=== PATIENT | female | born 1935 | race Caucasian/White ===

== ENCOUNTER 2017-03-26 02:27 | Emergency (ER) | payer OTHER ==
[2017-03-26] MEDS ORDERED: ONDANSETRON 4 MG/2 ML VIAL IVPB ONE (02:30)
[2017-03-26] MEDS ORDERED: SODIUM CHLORIDE 1,000 ML IV ONE (02:31)
[2017-03-26] MEDS ORDERED: morphine CARPU-JECT 4 MG/1 ML DISP.SYRIN IVPUSH ONE (02:31)
--- NOTE | 2017-03-26 02:31 | PDOC ---
History of Present Illness - General Chief Complaint: Pain, Acute Stated Complaint: FLANK PAIN History Source: Patient Exam Limitations: No Limitations - History of Present Illness Initial Comments: 03/26/17 02:36 This is an obese 81-year-old female who comes in complaining of acute onset of left flank pain radiating to her left lower quadrant. Patient says it is associated with some mild nausea but denies any frequency, dysuria, hematuria, vomiting or diarrhea. Patient denies any fevers or chills. Patient denies history of similar pain in the past. Patient denies history of renal colic or family history of kidney stones. Patient has multiple medical problems including diabetes, hypertension, high cholesterol, pacemaker, coronary artery disease. PAST MEDICAL HISTORY: no significant history PAST SURGICAL HISTORY: no significant history FAMILY HISTORY: no pertinant history SOCIAL HISTORY: Pt lives with family and is employed. MEDICATIONS: reviewed ALLERGIES: As per nursing notes Review of Systems General: No fevers or chills, no weakness, no weight loss HEENT: No change in vision. No sore throat,. No ear pain CardioVascular: No chest pain or shortness of breath Respiratory:No cough, or wheezing. Gastrointestinal: no nausea, vomitting, diarrhea or constipation, No rectal bleeding, left flank/abdominal pain Genitourinary: No dysuria, hematuria, or frequency Musculoskeletal: No joint or muscle pain or swelling Neurologic: No headache, vertigo, dizziness or loss of consciousness Psychiatric: nor depression Skin: No rashes or easy bruising Endocrine: no increased thirst or abnormal weight change Allergic: no skin or latex allergy All other systems reviewed and normal Exam: General: Well-nourished well-developed individual, no acute distress HEENT: Throat: Normal, tonsils normal, no erythema or exudate Neck: Supple, no meningeal signs, no lymphadenopathy Eyes::Pupils equal reactive and round, extraocular motion intact Chest: Nontender to palpation Cardiac: S1-S2 normal, regular rate and rhythm, no murmurs rubs or gallops Respiratory: Lungs clear to auscultation bilateral Abdomen: Soft, nondistended, normal bowel sounds, nontender to palpation diffusely BACK/FLANK: There is pain on palpation left lower flank area Extremities: Warm, dry, no cyanosis, clubbing, or edema Skin: No rashes Neuro: Alert and oriented x3, nonfocal exam, grossly intact, normal gait Psych: Normal mood and affect 03/26/17 03:38 CT scan showed no acute intra-abdominal pathology Patient feels much better post fluids and morphine. Assessment and plan: This is a 81-year-old female who came in with left sided back flank pain radiating towards her abdomen. Patient had a workup including CBC with a slightly elevated white count but no left shift. Patient's chemistries were otherwise unremarkable. Patient had a CAT scan with no acute intra-abdominal pathology. Patient's urine was negative for any infection or blood. Patient discharged home will follow-up with her primary care next week if symptoms return. Past History - Past Medical History Allergies/Adverse Reactions: Allergies Allergy/AdvReac Type Severity Reaction Status Date / Time shrimp Allergy Severe Difficulty Verified 05/19/15 15:09 Breathing Penicillins Allergy Intermediate Rash Verified 05/19/15 15:09 Home Medications: Ambulatory Orders Cholecalciferol (Vitamin D3) [Vitamin D3] 1,000 unit PO DAILY 05/19/15 Furosemide [Lasix -] 40 mg PO DAILY 05/19/15 Lutein 6 mg PO DAILY 05/19/15 Metformin HCl 500 mg PO BID 05/19/15 Nebivolol HCl [Bystolic] 10 mg PO DAILY 05/19/15 Potassium Chloride [Klor-Con M15] 15 meq PO DAILY 05/19/15 Apixaban [Eliquis] 5 mg PO BID 08/20/15 Glipizide [Glipizide ER] 2.5 mg PO BID 08/20/15 Rosuvastatin Calcium [Crestor] 10 mg PO DAILY 08/20/15 Oxycodone HCl/Acetaminophen [Percocet 5/325 -] 1 tab PO Q6H #10 tablet 08/21/15 Cardiac Disorders: Yes (PACEMAKER) Diabetes: Yes GI Disorders: Yes (HIATAL HERNIA) HTN: Yes - Psycho/Social/Smoking Cessation Hx Anxiety: No Suicidal Ideation: No Smoking History: Former smoker Have you smoked in the past 12 months: No If you are a former smoker, when did you quit?: 1969 Hx Alcohol Use: Yes (RARE) Drug/Substance Use Hx: No Substance Use Type: Alcohol ED Treatment Course - LABORATORY CBC & Chemistry Diagram: 03/26/17 02:50 03/26/17 02:50 *DC/Admit/Observation/Transfer Diagnosis at time of Disposition: Acute flank pain - Discharge Dispostion Disposition: HOME Condition at time of disposition: Stable Admit: No - Patient Instructions Additional Instructions: Tylenol as needed for the pain. Return to the emergency department immediately with ANY new, persistent or worsening symptoms. Continue any medications as previously prescribed by your physician. You should follow up with your primary doctor as soon as possible regarding today's emergency department visit. . Please make sure your doctor reviews the results of your emergency evaluation. Thank you for coming to the Emergency Department today for your care. It was a pleasure to see you today. Please note that your evaluation is INCOMPLETE until you follow-up with your doctor.
[2017-03-26] MEDS ORDERED: ONDANSETRON 4 MG/2 ML VIAL ONE (02:38)
[2017-03-26] MEDS ORDERED: morphine CARPU-JECT 4 MG/1 ML DISP.SYRIN ONE (02:38)
[2017-03-26 03:16] LABS: BASOPHIL 0.6 % (0-2.0); EOSINOPHIL 1.5 % (0-4.5); MCH 30.1 pg (25.7-33.7); MCHC 32.6 g/dl (32.0-36.0); MEAN CELL VOLUME 92.2 fl (80-96); MEAN PLT VOLUME 8.6 fl (7.5-11.1); PLATELET COUNT 170 K/MM3 (134-434); RDW 14.7 % (11.6-15.6); WHITE BLOOD COUNT 12.3 K/mm3 (4.0-10.0)
[2017-03-26 03:18] LABS: URINE APPEARANCE CLEAR; URINE BILIRUBIN NEGATIVE (NEGATIVE); URINE BLOOD NEGATIVE (NEGATIVE); URINE COLOR LTYELLOW; URINE GLUCOSE (UA) NEGATIVE (NEGATIVE); URINE KETONE NEGATIVE (NEGATIVE); URINE LEUK ESTERASE TRACE (NEGATIVE); URINE NITRITE NEGATIVE (NEGATIVE); URINE UROBILINOGEN NEGATIVE mg/dL (0.2-1.0)
[2017-03-26 03:23] LABS: URINE PROTEIN 1+ (NEGATIVE)
[2017-03-26 03:30] VITALS: BP 172/77; PULSE 68; TEMP 97.4; BMI 32.2
[2017-03-26 04:12] LABS: ALBUMIN 3.4 g/dl (3.4-5.0); ANION GAP 7 (8-16); BILIRUBIN,TOTAL 0.5 mg/dL (0.2-1.0); CALCIUM 8.9 mg/dL (8.5-10.1); CO2 32 mmol/L (21-32); CREATININE 0.8 mg/dL (0.55-1.02); GLUCOSE,RANDOM 154 mg/dL (74-106); SGOT/AST 17 U/L (15-37); SGPT/ALT 23 U/L (12-78); TOT PROT 6.9 g/dl (6.4-8.2)
[2017-03-26 04:13] LABS: ALK PHOS 64 U/L (45-117)
[2017-03-26 04:17] LABS: URINE HYALINE CAST 1 /lpf; URINE MUCUS RARE; URINE RBC 1 /hpf (0-3); URINE WBC 1 /hpf (3-5)
== END 2017-03-26 04:25 | disposition home or self-care (01) ==
LOC: FER 02:27
PROC: 3E033NZ Introduction of Analgesics, Hypnotics, Sedatives into Peripheral Vein, Percutaneous Approach (ICD-10-PCS; principal; 2017-03-26)
PROC: 3E033GC Introduction of Other Therapeutic Substance into Peripheral Vein, Percutaneous Approach (ICD-10-PCS; 2017-03-26)
PROC: 3E0337Z Introduction of Electrolytic and Water Balance Substance into Peripheral Vein, Percutaneous Approach (ICD-10-PCS; 2017-03-26)
DX: R10.32 Left lower quadrant pain (principal); I10 Essential (primary) hypertension; Z95.0 Presence of cardiac pacemaker; E11.9 Type 2 diabetes mellitus without complications; Z87.891 Personal history of nicotine dependence
CPT/HCPCS: 36415; 74176-TC; 80053; 81003; 81015; 85025; 99283-25

== ENCOUNTER 2017-10-28 09:09 | Emergency (ER) | payer OTHER ==
--- NOTE | 2017-10-28 09:15 | PDOC ---
History of Present Illness - General Chief Complaint: Pain Stated Complaint: PAIN TO LEFT SHOULDER AND BACK Time Seen by Provider: 10/28/17 09:15 - History of Present Illness Initial Comments: 10/28/17 09:38 MS Hudson is a [place] 81 yo F who presents to the ER with her due to left upper back and elbow pain Pt states she is 8 weeks s/p left knee replacement. She is currently doing physical therapy s/p her surgery On Monday, she was in therapy, pulled on a resistance band and noted left upper back pain No direct trauma No cough, no shortness of breath, no fevers Pt states that pain is at its worse at night (for example, last night she could only sleep for 3 hours due to upper back pain) No rash No limitations in range of motion, no arm weakness or numbness PMH: HTN, DM, Afib, TIA PSH: left knee replacement, cataract surgery, PPM placement Meds: please see MAR ALL: Shrimp, PCN --> urticaria Social: , lives at home with , independent ADLs, Denies alcohol, drugs, tobacco use PMD: Dr Magana Cards: outside physician GENERAL/CONSTITUTIONAL: No: fever, chills HEAD, EYES, EARS, NOSE AND THROAT: No: change in vision, ear pain, discharge, sore throat, throat swelling. CARDIOVASCULAR: No: chest pain, lightheadedness, palpitations, syncope RESPIRATORY: No: cough, shortness of breath GASTROINTESTINAL: No: nausea, vomiting, diarrhea, abdominal pain GENITOURINARY: No: dysuria, hematuria MUSCULOSKELETAL: Yes: upper back pain No: neck pain, joint pain SKIN: No: lesions, rash NEUROLOGIC: No: headache ENDOCRINE: No: unexplained weight gain or loss HEMATOLOGIC/LYMPHATIC: Yes: anticoagulant No: anemia, easy bleeding, swelling nodes. GENERAL: The patient is in no acute distress. HEAD: Normal with no signs of trauma. EYES: PERRLA, EOMI, sclera anicteric, conjunctiva clear. ENT: Ears normal, nares patent, oropharynx clear without exudates. Moist mucous membranes. NECK: Normal range of motion, supple LUNGS: Breath sounds equal, clear to auscultation bilaterally. No wheezes, and no crackles. HEART:Regular rate and rhythm, normal S1 and S2 without murmur, rub or gallop. ABDOMEN: Soft, nontender, normoactive bowel sounds. No guarding, no rebound. No masses palpable. EXTREMITIES: Normal range of motion, no edema. No clubbing or cyanosis. No erythema, or tenderness. 2+ RP 2+ UP Sensation in tact Brisk cap refill NEUROLOGICAL: Cranial nerves II through XII grossly intact. Normal speech. No focal neurological deficits. MUSCULOSKELETAL: I was able to find an area of tenderness in the left upper back, I palpated once and it was painful, the 2nd time it was not Pt is able to Flex and extend at the left shoulder Pt is able to Abduct and Adduct at the left shoulder Negative Empty can test SKIN: Warm, Dry, normal turgor, no rashes or lesions noted. 10/28/17 09:42 10/28/17 09:47 10/28/17 09:59 Past History - Past Medical History Allergies/Adverse Reactions: Allergies Allergy/AdvReac Type Severity Reaction Status Date / Time shrimp Allergy Severe Difficulty Verified 10/30/17 09:21 Breathing Penicillins Allergy Intermediate Rash Verified 10/30/17 09:21 Home Medications: Ambulatory Orders Cholecalciferol (Vitamin D3) [Vitamin D3] 1,000 unit PO DAILY 05/19/15 Furosemide [Lasix -] 40 mg PO DAILY 05/19/15 Lutein 6 mg PO DAILY 05/19/15 Metformin HCl 500 mg PO BID 05/19/15 Nebivolol HCl [Bystolic] 10 mg PO DAILY 05/19/15 Potassium Chloride [Klor-Con M15] 15 meq PO DAILY 05/19/15 Apixaban [Eliquis] 5 mg PO BID 08/20/15 Glipizide [Glipizide ER] 2.5 mg PO BID 08/20/15 Rosuvastatin Calcium [Crestor] 10 mg PO DAILY 08/20/15 Oxycodone HCl/Acetaminophen [Percocet 5/325 -] 1 tab PO Q6H #10 tablet 08/21/15 Lidocaine 5% Patch [Lidoderm Patch -] 1 patch TP DAILY PRN #30 patch 10/28/17 Oxycodone HCl 5 mg PO Q8H PRN #12 tablet MDD 3 10/30/17 Cardiac Disorders: Yes (PACEMAKER) CVA: Yes (TIA) Diabetes: Yes GI Disorders: Yes (HIATAL HERNIA) HTN: Yes - Surgical History Cardiac Surgery: Yes (PPM) - Suicide/Smoking/Psychosocial Hx Smoking History: Former smoker Have you smoked in the past 12 months: No If you are a former smoker, when did you quit?: 1969 Hx Alcohol Use: Yes (RARE) Drug/Substance Use Hx: No Substance Use Type: Alcohol ED Treatment Course - LABORATORY CBC & Chemistry Diagram: 10/28/17 09:45 10/28/17 10:15 Medical Decision Making - Medical Decision Making 10/28/17 09:56 81 yo F presenting to the ER with a complaint of left upper back and left arm pain Pt s/p work out at PT that may have been too aggressive DD includes Musculoskeletal pain, Atypical angina, PE (Given recent surgery), pneumonia Will do: Labs Will include age adjusted D dimer (this patient is recently post op and has left upper back pain with I can not elicit with palpation of the area or laying patient down on her back, or ranging her shoulder) CXR EKG Will re assess 10/28/17 09:59 EKG: paced at 70 bpm 10/28/17 11:09 Laboratory Tests 10/28/17 10/28/17 10/28/17 09:45 10:15 10:15 WBC 7.0 D Hgb 12.2 Hct 37.0 Plt Count 260 Sodium 128 L Potassium 5.4 H D Chloride 98 Carbon Dioxide 24 BUN 12 Creatinine 0.8 D Random Glucose 211 H D Total Bilirubin 1.8 H D AST 47 H D ALT 9 L D Troponin I < 0.03 Albumin < 1.2 L D 10/28/17 11:26 Laboratory Tests 10/28/17 09:45 D-Dimer 4361 H Pt is convinced this is gas pain Pt states she does not believe the elevated d dimer is due to a clot It is very possible that it is erroneously elevated due to recent surgery She is currently also taking Elliquis for Afib Would rather go home that have any additional work up This was all discussed with the patient in the presence of her Both voice understanding of my concerns Return to the ER if symptoms worsen She will be trying simethicone for her gas pain Will give Lidoderm patches for back pain Clinical impression: upper back pain, initial presentation *DC/Admit/Observation/Transfer Diagnosis at time of Disposition: Upper back pain on left side - Discharge Dispostion Disposition: HOME Condition at time of disposition: Stable Admit: No - Prescriptions Prescriptions: Lidocaine 5% Patch [Lidoderm Patch -] 1 patch TP DAILY PRN #30 patch PRN Reason: Pain - Referrals - Patient Instructions Printed Discharge Instructions: DI for Dyspepsia, DI for Thoracic Back Pain Additional Instructions: Ms Hudson Thanks for coming in to the ER today Please be sure to follow up with your Primary Care physician within 2 days Return to the ER if ANY shortness of breath, cough, increased pain, nausea, sweating, chest pain OR ANY other concerning symptoms We would be happy to see you again You can use lidoderm patches if you think this will be helpful Please continue to take the simethicone for the gas pain - Post Discharge Activity
[2017-10-28 09:22] VITALS: BP 153/64; PULSE 76; TEMP 97.6; BMI 30.5
[2017-10-28] MEDS ORDERED: ACETAMINOPHEN 1000 MG/100 ML VIAL (NON FORMULARY) IVPB ONE (09:47)
[2017-10-28] MEDS ORDERED: ACETAMINOPHEN INJECTION 100 ML IVPB ONE (09:51)
[2017-10-28 09:58] LABS: BASO % 2.2 % (0-2.0); EOS % 1.1 % (0-4.5); HEMOGLOBIN 12.2 GM/dl (10.7-15.3); LYMPH % 19.2 % (8-40); MCH 29.4 pg (25.7-33.7); MCHC 32.9 g/dl (32.0-36.0); MEAN CELL VOLUME 89.5 fl (80-96); MONO % 10.4 % (3.8-10.2); NEUT % 67.1 % (42.8-82.8); PLATELET COUNT 260 K/MM3 (134-434); RBC 4.13 M/mm3 (3.60-5.2); RDW 14.8 % (11.6-15.6)
[2017-10-28 10:07] LABS: INR 1.43 (0.82-1.09); PROTHROMBIN TIME (PATIENT) 15.9 SEC (10.2-13.0)
[2017-10-28 10:48] LABS: ALK PHOS 61 U/L (32-92); ANION GAP 6 (8-16); BILIRUBIN,TOTAL 1.8 mg/dl (0.2-1.0); BLOOD UREA NITROGEN 12 mg/dl (7-18); CALCIUM 8.6 mg/dl (8.4-10.2); CHLORIDE 98 mmol/L (98-107); CO2 24 mmol/L (22-28); CREATININE 0.8 mg/dl (0.6-1.3); GLUCOSE,RANDOM 211 mg/dl (74-106); SGOT/AST 47 U/L (10-42); SGPT/ALT 9 U/L (10-40); SODIUM 128 mmol/L (136-145); TOT PROT 7.1 g/dl (6.4-8.3)
[2017-10-28 11:03] LABS: ALBUMIN < 1.2 g/dl (3.5-5.0); POTASSIUM 5.4 mmol/L (3.5-5.1)
--- NOTE | 2017-10-29 18:45 | EKG ---
Test Reason : Blood Pressure : / mmHG Vent. Rate : 070 BPM Atrial Rate : 070 BPM P-R Int : 186 ms QRS Dur : 198 ms QT Int : 528 ms P-R-T Axes : 047 -78 089 degrees QTc Int : 570 ms Atrial-sensed ventricular-paced rhythm ABNORMAL ECG WHEN COMPARED WITH ECG OF 02-OCT-2001 01:45, ELECTRONIC VENTRICULAR PACEMAKER HAS REPLACED SINUS RHYTHM Confirmed by MD GLENN, RILEY ([id number]) on 10/29/2017 6:44:59 PM Referred By: EVA LENTZ Confirmed By:RILEY ELIZABETH MD
== END 2017-10-28 11:45 | disposition home or self-care (01) ==
LOC: FER 09:09
DX: M54.9 Dorsalgia, unspecified (principal); E11.9 Type 2 diabetes mellitus without complications; I10 Essential (primary) hypertension; I48.91 Unspecified atrial fibrillation; Z79.01 Long term (current) use of anticoagulants; Z86.73 Personal history of transient ischemic attack (TIA), and cerebral infarction without residual deficits; Z95.0 Presence of cardiac pacemaker; Z87.891 Personal history of nicotine dependence
CPT/HCPCS: 36415; 80053; 84484; 85025; 85379; 85610; 93005; 99282-25

== ENCOUNTER 2017-10-30 09:15 | Emergency (ER) | payer OTHER ==
[2017-10-30 09:20] VITALS: BP 146/70; PULSE 70; TEMP 98.4; BMI 30.5
--- NOTE | 2017-10-30 10:08 | PDOC ---
History of Present Illness - General Chief Complaint: Back Pain Stated Complaint: BACK PAIN Time Seen by Provider: 10/30/17 09:43 History Source: Patient, Family, Old Records Exam Limitations: No Limitations - History of Present Illness Initial Comments: 10/30/17 10:05 41-year-old female patient with history of hypertension, diabetes, pacemaker, TIA, atrial fibrillation on eliquis returns back to the emergency department for intermittent left upper back pain. The patient was recently here on October 28 for similar complaints. At that time, it was noted that she was pulling a resistance band and subsequent noted some intermittent left upper back discomfort occasionally reproducible with movement. She denies any midsternal chest pain or shortness of breath. It is not pleuritic. She has no exertional component. At that time, blood work was performed and demonstrated negative troponin but no elevated d-dimer. At that time, given that the symptoms were atypical, CAT scan was deferred to rule out pulmonary embolism. However, patient reports that she's been having intermittent pain that is relieved at times with Tylenol or half tablet of oxycodone. But because the symptoms were persisting, came to the ED. States that she has minimal pain now and that the symptoms are the same. No fevers, chills. Past History - Past Medical History Allergies/Adverse Reactions: Allergies Allergy/AdvReac Type Severity Reaction Status Date / Time shrimp Allergy Severe Difficulty Verified 10/30/17 09:21 Breathing Penicillins Allergy Intermediate Rash Verified 10/30/17 09:21 Home Medications: Ambulatory Orders Cholecalciferol (Vitamin D3) [Vitamin D3] 1,000 unit PO DAILY 05/19/15 Furosemide [Lasix -] 40 mg PO DAILY 05/19/15 Lutein 6 mg PO DAILY 05/19/15 Metformin HCl 500 mg PO BID 05/19/15 Nebivolol HCl [Bystolic] 10 mg PO DAILY 05/19/15 Potassium Chloride [Klor-Con M15] 15 meq PO DAILY 05/19/15 Apixaban [Eliquis] 5 mg PO BID 08/20/15 Glipizide [Glipizide ER] 2.5 mg PO BID 08/20/15 Rosuvastatin Calcium [Crestor] 10 mg PO DAILY 08/20/15 Oxycodone HCl/Acetaminophen [Percocet 5/325 -] 1 tab PO Q6H #10 tablet 08/21/15 Lidocaine 5% Patch [Lidoderm Patch -] 1 patch TP DAILY PRN #30 patch 10/28/17 Oxycodone HCl 5 mg PO Q8H PRN #12 tablet MDD 3 10/30/17 Cardiac Disorders: Yes (PACEMAKER) CVA: Yes (TIA) COPD: No Diabetes: Yes GI Disorders: Yes (HIATAL HERNIA) HTN: Yes - Surgical History Cardiac Surgery: Yes (PPM) - Suicide/Smoking/Psychosocial Hx Smoking History: Former smoker Have you smoked in the past 12 months: No If you are a former smoker, when did you quit?: 1969 Information on smoking cessation initiated: No Hx Alcohol Use: No Drug/Substance Use Hx: No Substance Use Type: Alcohol Review of Systems - Review of Systems Able to Perform ROS?: Yes Comments:: 10/30/17 10:05 GENERAL/CONSTITUTIONAL: No fever, weakness. HEAD, EYES, EARS, NOSE AND THROAT: No change in vision. No ear pain or discharge. No sore throat. CARDIOVASCULAR: No chest pain or shortness of breath. RESPIRATORY: No cough, wheezing, or hemoptysis. GASTROINTESTINAL: No abdominal pain, nausea, vomiting, diarrhea, or decreased PO intolerance. GENITOURINARY: No dysuria, frequency, or change in urination. MUSCULOSKELETAL: No joint or muscle swelling or pain. No neck. + back pain. SKIN: No rash NEUROLOGIC: No headache, vertigo, loss of consciousness, or change in strength/ sensation. ENDOCRINE: No increased thirst. No abnormal weight change. HEMATOLOGIC/LYMPHATIC: No anemia, easy bleeding, or history of blood clots. ALLERGIC/IMMUNOLOGIC: No hives or skin allergy. *Physical Exam - Vital Signs Last Vital Signs Temp Pulse Resp BP Pulse Ox 98.4 F 70 20 146/70 100 10/30/17 09:17 10/30/17 09:17 10/30/17 09:17 10/30/17 09:17 10/30/17 09:17 - Physical Exam Comments: 10/30/17 10:05 GENERAL: Awake, alert, and fully oriented, in no acute distress. HEAD: No signs of trauma EYES: PERRLA, EOMI, sclera anicteric, conjunctiva clear ENT: Auricles normal inspection, hearing grossly normal, nares patent. NECK: Normal ROM, supple, no lymphadenopathy, JVD, or masses LUNGS: Breath sounds equal, clear to auscultation bilaterally. No wheezes, and no crackles HEART: Regular rate and rhythm, normal S1 and S2, no murmurs, rubs or gallops BACK: intermittently reproducible left upper back pain with palpation ABDOMEN: Soft, nontender. No guarding, no rebound. No masses EXTREMITIES: Normal range of motion, no edema. No clubbing or cyanosis. No cords, erythema, or tenderness NEUROLOGICAL: Cranial nerves II through XII grossly intact. Normal speech, normal gait SKIN: Warm, Dry, normal turgor, no rashes or lesions noted. Heart Score/ECG Review #1 ECG reviewed & interpreted by me at: 10:00 10/30/17 10:08 AV paced 64 ED Treatment Course - RADIOLOGY Radiology Studies Ordered: Category Date Time Status CHEST PA & LAT [RAD] Stat Radiology 10/30/17 09:43 Ordered Medical Decision Making - Medical Decision Making 10/30/17 10:08 Vital Signs Temp Pulse Resp BP Pulse Ox 98.4 F 70 20 146/70 100 10/30/17 09:17 10/30/17 09:17 10/30/17 09:17 10/30/17 09:17 10/30/17 09:17 I have had an extensive conversation with the patient and her . The patient had concerns because the symptoms were persistent but were intermittent. At times, the patient was symptom free but other times the pain would return. At some times it would be reproducible but other times would not. She never endorsing any chest pain or shortness of breath and would be relieved with Tylenol many times. At times she will take half tablet of oxycodone which with significantly reduced his symptoms. I have suspect that this may potentially be muscle skeletal given her history and physical. However, from her previous visit, it was noted that her d-dimer was elevated above 4000. Given the circumstances of surgery 2 months ago, I had discussed the potential concern for pulmonary embolism. 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 My sense is that this is likely more muscle skeletal and less likely to be pulmonary embolism. An given that the patient is ready on an anticoagulant, it makes me less suspicious so. Patient's O2 saturation is 100% on room air and she has unlabored breathing. She has no pleuritic pain. The patient is unsure if she has ever received IV contrast and given her ALLERGIES, she is concerned about getting IV contrast. I feel that the risks outweighed the benefits given that pulmonary embolism is not high my differential. We'll obtain chest x-ray to look for other etiologies such as a small pneumonia or bony irregularities. If workup is negative, the patient feels comfortable going back to her doctor for outpatient workup and follow-up. 10/30/17 10:35 Chest xray reviewed. Enlarged heart and pacemaker but no other acute pathology. Pt feels reassurred and will go home with . I discussed the physical exam findings, ancillary test results and final diagnoses with the patient. I answered all of the patient's questions. The patient was satisfied with the care received and felt comfortable with the discharge plan and treatment plan. The patient will call their primary care physician within 24 hours to arrange follow-up and will return to the Emergency Department with any new, persistant or worsening symptoms. *DC/Admit/Observation/Transfer Diagnosis at time of Disposition: Back pain Qualifiers: Back pain location: back pain in unspecified location Chronicity: unspecified Back pain laterality: unspecified Qualified Code(s): M54.9 - Dorsalgia, unspecified - Discharge Dispostion Disposition: HOME Condition at time of disposition: Stable Admit: No - Prescriptions Prescriptions: Oxycodone HCl 5 mg PO Q8H PRN #12 tablet MDD 3 PRN Reason: Pain - Referrals - Patient Instructions Printed Discharge Instructions: DI for Thoracic Back Pain Additional Instructions: Take 650 mg tylenol every 4 hours as needed for pain. For additional relief, take a tablet (or half tablet) of oxycodone every 8 hours as needed for severe pain. This medication may make you drowsy and constipated, so please be cautious. Bring the copy of the EKG and chest radiograph results to your doctor. Call to schedule an appointment. - Post Discharge Activity
--- NOTE | 2017-10-31 13:33 | EKG ---
Test Reason : Blood Pressure : / mmHG Vent. Rate : 064 BPM Atrial Rate : 064 BPM P-R Int : 186 ms QRS Dur : 200 ms QT Int : 534 ms P-R-T Axes : 068 -75 076 degrees QTc Int : 550 ms Atrial-sensed ventricular-paced rhythm ABNORMAL ECG WHEN COMPARED WITH ECG OF 28-OCT-2017 09:26, VENT. RATE HAS DECREASED BY 6 BPM Confirmed by MD Benitez, Yunier ([id number]) on 10/31/2017 1:33:09 PM Referred By: UTE Confirmed By:Yunier Marquis MD
== END 2017-10-30 10:44 | disposition home or self-care (01) ==
LOC: FER 09:15
DX: M54.9 Dorsalgia, unspecified (principal); I10 Essential (primary) hypertension; E11.9 Type 2 diabetes mellitus without complications; I48.91 Unspecified atrial fibrillation; Z79.01 Long term (current) use of anticoagulants; Z95.0 Presence of cardiac pacemaker
CPT/HCPCS: 71046-TC-FY; 93005; 99282-25

== ENCOUNTER 2021-04-05 09:56 | Emergency (ER) | payer OTHER ==
[2021-04-05 10:13] VITALS: BP 116/59; PULSE 61; TEMP 98; BMI 30.2
[2021-04-05 12:02] LABS: EOS % 1.2 % (0-4.5); HEMATOCRIT 35.5 % (32.4-45.2); HEMOGLOBIN 11.4 GM/dl (10.7-15.3); LYMPH % 14.6 % (8-40); MCH 29.3 pg (25.7-33.7); MEAN CELL VOLUME 91.5 fl (80-96); MEAN PLT VOLUME 8.4 fl (7.5-11.1); MONO % 10.7 % (3.8-10.2); NEUT % 72.5 % (42.8-82.8); PLATELET COUNT 243 10^3/uL (134-434); RBC 3.88 M/mm3 (3.60-5.2); RDW 17.1 % (11.6-15.6); WHITE BLOOD COUNT 9.1 K/mm3 (4.0-10.8)
[2021-04-05 12:05] LABS: INR 1.49 (0.82-1.09); PROTHROMBIN TIME (PATIENT) 16.3 SEC (10.2-13.0)
[2021-04-05 12:12] LABS: ALBUMIN 3.5 g/dl (3.4-5.0); BILIRUBIN,TOTAL 0.9 mg/dl (0.2-1); CALCIUM 8.7 mg/dl (8.5-10); CREATININE 0.9 mg/dl (0.55-1.3); TOT PROT 7.1 g/dl (6.4-8.2)
[2021-04-05] MEDS ORDERED: FUROSEMIDE 40 MG/4 ML INJECTABLE VIAL IVPUSH ONE (13:34)
[2021-04-05] MEDS ORDERED: FUROSEMIDE 40 MG/4 ML INJECTABLE VIAL ONE (13:40)
[2021-04-05 15:24] LABS: N-TERMINAL BNP 2364.2 pg/ml (5-450)
== END 2021-04-05 17:00 | disposition short-term general hospital (02) ==
LOC: FER 09:56
PROC: 3E033GC Introduction of Other Therapeutic Substance into Peripheral Vein, Percutaneous Approach (ICD-10-PCS; principal; 2021-04-05)
DX: R09.02 Hypoxemia (principal); I50.9 Heart failure, unspecified
CPT/HCPCS: 36415; 70490-TC; 71275-TC; 80053; 83880; 84484; 85025; 85379; 85610; 93005; 93308; 96374; 99285-25; C9803; Q9967; U0003; U0005